=== PATIENT | female | born 1995 | race Caucasian/White ===

== ENCOUNTER 2023-10-23 11:49 | Emergency (ER) | payer BC, SELFPAY ==
[2023-10-23 11:51] VITALS: BP 121/83; BMI 25.6
[2023-10-23 12:11] LABS: % Basophils 0.4 % (0-2); % Eosinophils 1.3 % (0-6); % Immature Granulocytes 0.1 % (0-0.5); % Lymphocytes 40.4 % (20.5-51.1); % Monocytes 5.6 % (1.7-9.3); % Neutrophils 52.2 % (42.2-75.2); Absolute Eosinophils 0.1 10^3/uL (0-0.7); Absolute Lymphocytes 3.5 10^3/uL (1.2-3.4); Absolute Monocytes 0.5 10^3/uL (0.1-0.6); Absolute Neutrophils 4.5 10^3/uL (1.4-6.5); Hematocrit 39.8 % (37.0-47.0); Hemoglobin 13.6 g/dL (12.0-16.0); Mean Corp Hgb Conc. 34.2 g/dL (33.0-37.0); Mean Corpuscular Hgb 27.3 pg (27.0-31.0); Mean Corpuscular Volume 79.8 fL (81.0-99.0); Mean Platelet Volume 8.9 fL (7.4-10.4); Nucleated Red Blood Cells % 0 %; Platelet Count 315 10^3/uL (130-400); Red Blood Cell Count 4.99 10^6/uL (4.20-5.40); Red Cell Dist. Width 12.9 % (11.5-14.5); White Blood Cell Count 8.5 10^3/uL (4.8-10.8)
[2023-10-23 14:13] LABS: Urine Albumin Negative (Neg - Trace); Urine Bilirubin Negative (Negative); Urine Character Clear (Clear); Urine Color Straw; Urine Glucose Negative (Negative); Urine Ketone Negative (Negative); Urine Leukocyte Negative (Negative); Urine Nitrite Negative (Negative); Urine Occult Blood Negative (Negative); Urine Urobilinogen Negative (Neg - 1+)
--- NOTE | 2023-10-23 14:32 | ED.GENMED ---
History of Present Illness
<Rosalia Saenz NP - Last Filed: 10/24/23 15:51>
General
Chief Complaint: Abdominal Pain
Source: patient
Exam Limitations: none
Time Seen by Provider: 10/23/23 12:48
Nursing documentation reviewed up to this point in time: agreed with
Travel History
Have you had any contact with someone who has COVID-19?: No
Do you have any symptoms of coronavirus? Fever > 100 degrees, chills, cough, shortness of breath, sore throat, loss of taste or smell, muscle aches, or headache?: No
History of Present Illness
History of Present Illness:
Patient to ED for eval of RUQ abdominal pain. States symptoms have been mild and began approx 4-5 mos ago. Today pain was much worse. Denies fever/chills. +nausea by no vomiting. Her Father in Law, Dr. Amezcua, advised her to come to ED for
eval.
Past History
<Rosalia Saenz HOG DRIVER - Last Filed: 10/24/23 15:51>
Past History
ED Past Medical History: None
ED Past Surgical History: None
Social History
Tobacco: Non-smoker
Alcohol: None
Drug: None
Personal:
Review of Systems
<Rosalia Saenz HOG DRIVER - Last Filed: 10/24/23 15:51>
Review of Systems
Allergies reviewed?: Yes
All Other Systems: ROS reviewed and negative except as documented in HPI and ROS
Constitutional: Reports no symptoms
EENT: Reports no symptoms
Respiratory: Reports no symptoms
Cardiac: Reports no symptoms
ABD/GI: Reports abdominal pain (RUQ)
: Reports no symptoms
Musculoskeletal: Reports no symptoms
Skin: Reports no symptoms
Neurological: Reports no symptoms
Psychiatric: Reports no symptoms
Phy Exam
<Rosalia Saenz HOG DRIVER - Last Filed: 10/24/23 15:51>
General Physical Exam
General Presentation: well appearing and no apparent distress
General age: appears stated age
General Skin: warm
General Habitus: normal
General Mental: alert
General Chronic Disability: contractures
Gastrointestinal Exam
Gastrointestinal Exam: normal bowel sounds, non tender, no organomegaly, no pulsatile mass, non distended and no cva tenderness
Musculoskeletal Exam
Musculoskeletal Exam: full ROM and neuro vasc intact
Skin Exam
Skin Exam: normal color, warm/dry and no rash
Psychiatric Exam
Psychiatric Exam: normal mood/affect
Course
<Rosalia Saenz HOG DRIVER - Last Filed: 10/24/23 15:51>
Orders/Labs/Results
Orders:
Orders
10/23/23 11:56
Test Result ONCE
10/23/23 12:00
Complete Blood Count/With Diff Urgent
10/23/23 13:07
Urinalysis Reflex To Culture Urgent
Date Specimen was Collected: 10/23/23
Time Specimen was Collected: 13:52
US Abdomen Complete/Upper Urgent
Comment:
Reason For Exam: pain
10/23/23 13:57
HCG, Serum Qualitative Screen Urgent
10/23/23 14:39
Comprehensive Metabolic Panel Urgent
Lipase Urgent
Comment: ADDON
Abnormal Lab Results
10/23/23 10/23/23
12:00 14:39
MCV 79.8 L fL
(81.0-99.0)
Absolute Lymphs (auto) 3.5 H 10^3/uL
(1.2-3.4)
Carbon Dioxide 21 L mmol/L
(22-30)
Creatinine 0.4 L mg/dL
(0.6-1.0)
10/23/23 12:00
10/23/23 14:39
Vital Signs
Initial and Last Documented VS:
Initial Vital Signs
Temp Pulse Resp BP Pulse Ox
98.3 F 80 16 121/83 99
10/23/23 11:51 10/23/23 11:51 10/23/23 11:51 10/23/23 11:51 10/23/23 11:51
Last Documented Vital Signs
Temp Pulse Resp BP Pulse Ox
98.3 F 76 18 118/72 100
10/23/23 11:51 10/23/23 16:46 10/23/23 16:46 10/23/23 16:46 10/23/23 16:46
<Hussain Acosta, DO - Last Filed: 10/24/23 22:17>
Orders/Labs/Results
Orders:
Orders
10/23/23 11:56
Test Result ONCE
10/23/23 12:00
Complete Blood Count/With Diff Urgent
10/23/23 13:07
Urinalysis Reflex To Culture Urgent
Date Specimen was Collected: 10/23/23
Time Specimen was Collected: 13:52
US Abdomen Complete/Upper Urgent
Comment:
Reason For Exam: pain
10/23/23 13:57
HCG, Serum Qualitative Screen Urgent
10/23/23 14:39
Comprehensive Metabolic Panel Urgent
Lipase Urgent
Comment: ADDON
Abnormal Lab Results
10/23/23 10/23/23
12:00 14:39
MCV 79.8 L fL
(81.0-99.0)
Absolute Lymphs (auto) 3.5 H 10^3/uL
(1.2-3.4)
Carbon Dioxide 21 L mmol/L
(22-30)
Creatinine 0.4 L mg/dL
(0.6-1.0)
10/23/23 12:00
10/23/23 14:39
Vital Signs
Initial and Last Documented VS:
Initial Vital Signs
Temp Pulse Resp BP Pulse Ox
98.3 F 80 16 121/83 99
10/23/23 11:51 10/23/23 11:51 10/23/23 11:51 10/23/23 11:51 10/23/23 11:51
Last Documented Vital Signs
Temp Pulse Resp BP Pulse Ox
98.3 F 76 18 118/72 100
10/23/23 11:51 10/23/23 16:46 10/23/23 16:46 10/23/23 16:46 10/23/23 16:46
<Rosalia Saenz NP - Last Filed: 10/24/23 15:51>
*Radiology
Radiology exam reviewed: radiology read reviewed
*Critical Care Note
Total Time (30-74mins, 75-104mins- exclusive of procedures): Not Applicable
<Rosalia Saenz NP - Last Filed: 10/24/23 15:51>
Update Note
Update Note:
Dr. Damon notified of US results and evaluated patient in ED. Ok for discharge. She will schedule outpatient appointment for cholecystectomy. Given instructions on s/s to return to ED and she is agreeable to plan.
ED Attending Note
<Rosalia Saenz NP - Last Filed: 10/24/23 15:51>
-
Portions of this chart may have been created with voice recognition software.� Occasional wrong word or��sound alike� substitutions may have occurred due to the inherent limitations of voice recognition software.
<Hussain Acosta DO - Last Filed: 10/24/23 22:17>
ED Attending Note
Patient seen and examined by attending physician: Yes
I performed the substantive portion of visit, reviewed & personally made and approve the management plan that is documented in note by myself or SIDDHARTH.: Yes
ED Attending Note:
Patient is a 28-year-old female presents with right upper quadrant abdominal pain is getting progressively worse. Patient states that increases with eating. Patient does not appear to be in any distress. Vital signs are stable. Patient has had
nausea and vomiting that is worse with eating. Vital signs are stable. Lab work is unremarkable however the ultrasound does show cholelithiasis with mild cholecystitis. Discussed with surgery and will follow-up as an outpatient.
Discharge Plan
Departure
Patient Disposition: Home (Routine Discharge)
Date of Disposition: 10/23/23
Time of Disposition: 16:33
Patient with high blood pressure during this ER visit?: No
Condition: Good
Covid-19: Not Applicable
Discharge Problem:
Biliary colic
Instructions: Gallstones (DC)
Referrals:
Brennen Damon MD [Active] - Call in 1-3 days for appt (Call wednesday to schedule your office appointment.)
NONE,* [Family Provider] -
Activity Restrictions/Additional Instructions:
Return to the emergency department immediately for any changes in/worsening of your symptoms.
Interventions
Interventions:
*Risk Screen - Suicide Last Done: 10/23/23 11:51
*General Assessment Last Done: 10/23/23 16:46
*Neglect/Abuse Screening Last Done: 10/23/23 11:51
ED- Fall Risk Assessment Last Done: 10/23/23 11:51
*ED COVID-19 Vaccine History Last Done: 10/23/23 11:51
*Nursing Disposition Last Done: 10/23/23 16:46
HE-Mpbysf-[id number] Assessment Last Done: 10/23/23 14:18
Discharge Date and Time
Discharge Date/Time: 10/23/23 16:48
Print Language: NEPALESE
[2023-10-23 15:04] LABS: HCG, Serum Qualitative Screen Negative
[2023-10-23 15:06] LABS: ALT (SGPT) 12 U/L (0-35); AST (SGOT) 28 U/L (14-36); Albumin 4.4 g/dl (3.5-5.0); Alkaline Phosphatase 54 U/L (38-126); Blood Urea Nitrogen 8 mg/dl (7-17); Calcium 9.5 mg/dl (8.4-10.2); Carbon Dioxide 21 mmol/L (22-30); Chloride 106 mmol/L (98-107); Estimated Creatinine Clearance 108 ml/min; Glucose 82 mg/dl (70-99); Sodium 136 mmol/L (135-145); Total Bilirubin 0.8 mg/dl (0.2-1.3); Total Protein 7.3 g/dl (6.3-8.2); eGFR > 60.00
[2023-10-23 15:32] LABS: Lipase 99 U/L (23-300)
--- NOTE | 2023-10-23 16:39 | CON.GS ---
Medical History
-
Chief Complaint: RUQ pain
History of Present Illness:
Patient is a 28 yo F with no pertinent PMH who presents following an episode of RUQ abdominal pain. Ms. Amezcua states that over the past several months she has had intermittent attacks of epigastric pain with some radiation to the LUQ and associated
nausea. Of recent she has had more persistent attacks on an almost weekly basis. She does note association with oral intake, and worsening of symptoms with fatty foods. Her most recent attack occurred today. These attacks last several minutes
before resolving. Currently she is asymptomatic and without pain. No fevers or chills. No jaundice, pale stools, or tea colored urine. Of note she does have a family history of gallbladder disease. Of note she is on Mounjaro.
Past Medical History
Past Medical History: None
Past Surgical History: None
Social History
Tobacco: Non-Smoker
Alcohol: Occasional
Drug: None
Personal:
Living: With Family
Family History
Family History: Other (Family history of gallbladder disease)
Allergies / Home Medications
Allergy/AdvReac Type Severity Reaction Status Date / Time
No Known Allergies Allergy Unverified 10/23/23 11:55
Review of Systems
-
A 10 point review of systems was completed, and was negative except as per HPI.
Physical Exam
Vital Signs
Temp Pulse Resp BP Pulse Ox
98.3 F 80 16 121/83 99
10/23/23 11:51 10/23/23 11:51 10/23/23 11:51 10/23/23 11:51 10/23/23 11:51
10/22/23 10/23/23 10/24/23
06:59 06:59 06:59
Actual Weight 63.503 kg
Body Mass Index (BMI) 25.6
Lab Results
10/23/23 12:00
10/23/23 14:39
WBC 8.5 10^3/uL (4.8-10.8) 10/23/23 12:00
Hgb 13.6 g/dL (12.0-16.0) 10/23/23 12:00
Hct 39.8 % (37.0-47.0) 10/23/23 12:00
Plt Count 315 10^3/uL (130-400) 10/23/23 12:00
Abs Immat Gran (auto) 0.0 10^3/uL (0-0.05) 10/23/23 12:00
Neutrophils % 52.2 % (42.2-75.2) 10/23/23 12:00
Physical Exam
General: Well Developed, Well Nourished and No Apparent Distress
HEENT: Normocephalic and Anicteric
Respiratory: Non Labored Respirations
Cardiac: Regular Rhythm
GI: Soft, Non Tender (Negative Carballo's sign), Non Distended and Other (Nonperitoneal)
Musculoskeletal: No Edema
Skin: Warm and Dry
Neuro: Nonfocal/Grossly Intact
Data Reviewed
-
Ultrasound: Image Personally Visualized and interpreted and Report Reviewed by me
Labs: Labs Reviewed by me
Assessment / Plan
-
Patient is a 28 yo F p/w symptomatic cholelithiasis
Current episode lasted minutes before completely resolving. Labs notable for normal WBC, normal bilirubin, normal LFTs, and normal ALP. Ultrasound demonstrates cholelithiasis with a more contracted gallbladder and top normal gallbladder wall
thickness without pericholecystic edema and negative sonographic Carballo sign. The natural history and pathophysiology of biliary and stone disease was discussed. Options for management including medical management with a low-fat diet versus
surgical management with cholecystectomy were considered and discussed. Pros and cons of both approaches was discussed. No indication or need for urgent cholecystectomy at this time as her symptoms have rapidly and completely resolved. Recommend
outpatient cholecystectomy for prevention of future attacks.
Tentative plan for a laparoscopic cholecystectomy with possible cholangiogram. The procedure itself, as well as the risks, benefits, and alternatives was discussed. Specifically, we discussed the risks of bleeding, infection, injury to surrounding
structures (bowel, bile ducts), CBD injury, need for open procedure. Typical postprocedure recovery including STS procedure, pain management, and the 10 to 20% risk of fluctuations in GI function was discussed. All questions answered.
[id number] updated.
-- Okay for discharge from the ER.
-- Will have office call to schedule surgery.
-- Instructed to follow a low-fat diet in the interim.
[2023-10-23 16:46] VITALS: BP 118/72
== END 2023-10-23 16:48 | disposition home or self-care (01) ==
LOC: EMR 11:49
PROVIDERS: Nurse Practitioner; EMERGENCY PHYSICIAN Emergency Medicine
DX: K80.50 Calculus of bile duct without cholangitis or cholecystitis without obstruction (principal); Z83.79 Family history of other diseases of the digestive system
CPT/HCPCS: 99284; 76700; 80053; 81003; 83690; 84703; 85025

== ENCOUNTER 2023-11-10 06:06 | Day surgery (SDC) | payer BC, SELFPAY ==
[2023-11-10] VITALS (15 sets, daily range): BP systolic 89–111; BP diastolic 56–70; BMI 25.3
[2023-11-10] MEDS: TYLENOL 1000 MG PO (06:22)
[2023-11-10] MEDS: NORMOSOL-R 1000 IV (06:34)
[2023-11-10] MEDS: DILAUDID 0.25 MG IV ×2 (09:13→09:29)
--- NOTE | 2023-11-10 09:56 | SUR.PHASEI ---
Patient reporting B/L shoulder pain post op. IV positional. Patient restful, BP 93/57. Will monitor in PACU. Kaye Jain RN BSN.
[2023-11-10] MEDS: ZOFRAN 4 MG IV (10:59)
[2023-11-10] MEDS: COMPAZINE 5 MG IV (12:39)
[2023-11-10] MEDS: TYLENOL 650 MG PO (14:08)
== END 2023-11-10 14:20 | disposition home or self-care (01) ==
LOC: SDS 06:06
PROVIDERS: ATTENDING PHYSICIAN Surgery
DX: K80.10 Calculus of gallbladder with chronic cholecystitis without obstruction (principal); K80.51 Calculus of bile duct without cholangitis or cholecystitis with obstruction; K66.0 Peritoneal adhesions (postprocedural) (postinfection)
CPT/HCPCS: 47563; 88304; 74300; 76000; A4300